=== PATIENT | female | born 1990 | race Caucasian/White ===

== ENCOUNTER 2016-11-22 00:19 | Emergency (ER) | payer BC ==
[2016-11-22] MEDS ORDERED: Tetan/Diph/Pertus SYR(Tdap)* 0.5 ML SYR(BOOSTRIX) use SYR IM ONE (03:19)
--- NOTE | 2016-11-22 03:28 | ED ---
Substance Abuse/Use - HPI Summary HPI Summary: Patient WANDER to ED with sister after ETOH intoxication, passing out and 3X episodes of vomiting. Her sister states she did not choke on the vomit. She did not fall or hit her head. However, on physical exam, there was an abrasion over the right arm and leg. She says "ouch" when pressing over the head, when asked if she fell and hit her head, she replied "yes." Exam and history limited. Sister states she is otherwise healthy and takes no medications. Unknown chance of . - History Of Current Complaint Chief Complaint: EDSubstanceAbuse Stated Complaint: ETOH Time Seen by Provider: 11/22/16 00:26 Hx Obtained From: Patient ?: No Onset/Duration of Drug/ETOH Abuse: Hours Ingestion History: Type/Name Of Drug - alcohol Overdose Characteristics: Oral Timing Of Abuse: Binge Use Severity Initially: Moderate Severity Currently: Moderate Aggravating Factor(s): Nothing Alleviating Factor(s): Nothing Related Hx: Drug/Alcohol Last Used @ - this evening - Risk Factor(s) Completed Suicide Risk Factors: White [place] - Allergies/Home Medications Allergies/Adverse Reactions: Allergies Allergy/AdvReac Type Severity Reaction Status Date / Time Sulfa Antibiotics Allergy Anaphylatic Verified 11/22/16 00:34 Shock Home Medications: Home Medications NK [No Home Medications Reported] 11/22/16 [History Confirmed 11/22/16] PMH/Surg Hx/FS Hx/Imm Hx Previously Healthy: Yes - Immunization History Hx Pertussis Vaccination: No Immunizations Up to Date: No Infectious Disease History: No Infectious Disease History: Denies: Traveled Outside the [place] in Last 30 Days - Social History Occupation: Unemployed Lives: With Family Alcohol Use: Occasionally Hx Substance Use: No Substance Use Type: Reports: None Hx Tobacco Use: No Smoking Status (MU): Never Smoked Tobacco Review of Systems - ROS Summary Review of Systems Summary: ROS limited d/t patient state Constitutional: Negative Cardiovascular: Negative Respiratory: Negative Positive: Vomiting, Nausea Positive: Rash, Other - abrasions over right side of body Neurological: Negative Psychological: Normal All Other Systems Reviewed And Are Negative: Yes Physical Exam Triage Information Reviewed: Yes Vital Signs On Initial Exam: Initial Vitals Temp Pulse Resp BP Pulse Ox 96.9 F 90 19 106/74 99 11/22/16 00:24 11/22/16 00:24 11/22/16 00:24 11/22/16 00:24 11/22/16 00:24 Vital Signs Reviewed: Yes Appearance: Positive: Well-Appearing, Well-Nourished Skin: Positive: Warm - right sided abrasions, Other Head/Face: Positive: Normal Head/Face Inspection Eyes: Positive: EOMI, PRIMO, Conjunctiva Clear Neck: Positive: Supple, No Lymphadenopathy Respiratory/Lung Sounds: Positive: Clear to Auscultation, Breath Sounds Present Cardiovascular: Positive: RRR, Pulses are Symmetrical in both Upper and Lower Extremities Musculoskeletal: Positive: Normal, Strength/ROM Intact Neurological: Positive: Other - speech abnormal - [place] Coma Scale Coma Scale Total: 12 Diagnostics - Vital Signs Vital Signs Temp Pulse Resp BP Pulse Ox 11/22/16 02:54 98.2 F 114 18 117/95 97 11/22/16 02:15 114 20 102/57 97 11/22/16 02:01 99 20 93/50 96 11/22/16 01:46 93 20 91/52 97 11/22/16 01:32 91 18 93/60 97 11/22/16 01:16 81 18 93/60 98 11/22/16 01:04 90 14 101/68 99 11/22/16 00:46 83 16 102/67 99 11/22/16 00:27 96.9 F 90 18 106/74 99 11/22/16 00:24 96.9 F 90 19 106/74 99 - Laboratory Lab Statement: Any lab studies that have been ordered have been reviewed, and results considered in the medical decision making process. Course/Dx - Course Course Of Treatment: Sent to Brain CT for possible head trauma. Patient is awake and alert 3 hours after arrival and wishes to be discharged. At this time she denies head pain, nausea or other symptoms. She is OK to be discharged. CT Brain negative. Follow up with PCP. - Diagnoses Differential Diagnosis/HQI/PQRI: Positive: Alcohol Abuse, Alcohol Withdrawal, Depression Provider Diagnoses: Alcohol intoxication Discharge - Discharge Plan Condition: Stable Disposition: HOME Patient Education Materials: Alcohol Intoxication (ED) Additional Instructions: Follow up with your PCP.
[2016-11-22 03:46] VITALS: BP 110/77
--- NOTE | 2016-11-22 13:08 | RAD ---
INDICATION: Head trauma in the presence of +EtOH. COMPARISON: None. TECHNIQUE: Contiguous axial sections of the brain were obtained from the skull base to the vertex without contrast. FINDINGS: The ventricles, cisterns and sulci are within normal limits. The ann-white matter differentiation is adequately maintained and there is no sulcal effacement. No significant focal abnormality or mass effect is present. There is no evidence for intracranial hemorrhage. No significant focal osseous abnormality is present. The visualized portion of the paranasal sinuses and mastoid air cells appear clear. IMPRESSION: Normal CT of the brain.
== END 2016-11-22 03:46 | disposition home or self-care (01) ==
LOC: ED 00:19
DX: F10.129 Alcohol abuse with intoxication, unspecified (principal)
CPT/HCPCS: 70450; 90471; 99282